=== PATIENT | male | born 1970 | race Caucasian/White ===

== ENCOUNTER 2018-02-04 17:59 | Emergency (ER) | payer BC ==
[~2018-02-04] VITALS: Ht 172.7 cm; Wt 81.0 kg
[~2018-02-04 17:59] MED LIST: CIPR-230 PO; METR500T4 PO
[2018-02-04 18:03] VITALS: BP 153/93
[2018-02-04 20:02] LABS: BASOPHILS % (AUTO) 0.5 % (0-1); EOSINOPHILS # (AUTO) 0.2 X10'3 (0-0.9); EOSINOPHILS % (AUTO) 1.8 % (0-6); HEMOGLOBIN 15.6 g/dl (14.0-17.9); LYMPHOCYTES # (AUTO) 2.8 X10'3 (1.1-4.8); LYMPHOCYTES % (AUTO) 28.6 % (21-51); MEAN CORPUSCULAR HEMOGLOBIN 30.3 PG (27.0-31.0); MEAN CORPUSCULAR HGB CONC 33.8 % (33.0-36.5); MEAN CORPUSCULAR VOLUME 89.6 FL (78-98); MEAN PLATELET VOLUME 8.2 FL (7.4-10.4); MONOCYTES # (AUTO) 0.7 X10'3 (0-0.9); MONOCYTES % (AUTO) 7.5 % (2-12); NEUTROPHILS % (AUTO) 61.6 % (42-75); PLATELET COUNT 362 X10'3 (140-440); RED BLOOD COUNT 5.14 X10'6 (4.70-6.10); RED CELL DISTRIBUTION WIDTH 12.3 % (11.5-14.5); WHITE BLOOD COUNT 9.7 X10'3 (4.5-11.0)
[2018-02-04 20:16] LABS: ALANINE AMINOTRANSFERASE 32 U/L (12-78); ALBUMIN/GLOBULIN RATIO 1.1 (1.1-1.5); ALKALINE PHOSPHATASE 65 IU/L (46-116); ANION GAP 7 (8-16); ASPARTATE AMINO TRANSFERASE 22 U/L (10-37); BILIRUBIN,TOTAL 0.4 MG/DL (0.1-1.0); BLOOD UREA NITROGEN 14 MG/DL (7-18); BUN/CREATININE RATIO 12.8 (5.4-32.0); CALCIUM 9.1 MG/DL (8.5-10.1); CHLORIDE 100 MMOL/L (99-107); CREATININE 1.09 MG/DL (0.60-1.10); GLUCOSE 106 MG/DL (70-104); POTASSIUM 3.9 MMOL/L (3.5-5.1); SODIUM 140 MMOL/L (135-145); TOTAL CARBON DIOXIDE 33.2 MMOL/L (24-32); TOTAL PROTEIN 7.8 G/DL (6.4-8.2); eGFR 72 ML/MIN
== END 2018-02-04 20:48 | disposition home or self-care (01) ==
LOC: ER 17:59
DX: R79.9 Abnormal finding of blood chemistry, unspecified (principal); F12.90 Cannabis use, unspecified, uncomplicated
CPT/HCPCS: 36415; 80053; 85025; 99284

== ENCOUNTER 2018-07-27 06:51 | Emergency (ER) | payer BC ==
[~2018-07-27] VITALS: Ht 172.7 cm; Wt 84.0 kg
[2018-07-27 07:14] VITALS: BP 125/72
[2018-07-27 07:39] LABS: CLARITY,URINE CLEAR (Clear); COLOR,URINE YELLOW (Yellow); GLUCOSE, URINE NEGATIVE (Neg); KETONES,URINE NEGATIVE (Neg); LEUKOCYTE ESTERASE ,URINE NEGATIVE (Neg); NITRITES, URINE NEGATIVE (Neg); OCCULT BLOOD,URINE NEGATIVE (Neg); PH,URINE 8.5 (4.8-8.0); PROTEIN,URINE NEGATIVE (Neg); UROBILINOGEN,URINE 0.2 E.U/dL (0.2-1.0)
[2018-07-27 07:48] LABS: UA COLLECTION TYPE CLN CATCH MIDSTREAM
[2018-07-27] MEDS ORDERED: pantoprazole 40 MG vial IV ONE (07:50)
[2018-07-27] MEDS ORDERED: normal saline 1000ML IV soln IVB ONE (07:50)
[2018-07-27] MEDS ORDERED: proCHLORperazine 10 MG/2 ml inj IV ONE (07:50)
[2018-07-27 08:31] LABS: BASOPHILS # (AUTO) 0.1 X10'3 (0-0.2); BASOPHILS % (AUTO) 0.6 % (0-1); EOSINOPHILS # (AUTO) 0.1 X10'3 (0-0.9); EOSINOPHILS % (AUTO) 0.9 % (0-6); HEMATOCRIT 45.4 % (42.0-52.0); HEMOGLOBIN 15.7 g/dl (14.0-17.9); LYMPHOCYTES # (AUTO) 1.5 X10'3 (1.1-4.8); LYMPHOCYTES % (AUTO) 14.9 % (21-51); MEAN CORPUSCULAR HGB CONC 34.5 g/dL (33.0-36.5); MEAN CORPUSCULAR VOLUME 89.9 FL (78-98); MEAN PLATELET VOLUME 8.2 FL (7.4-10.4); MONOCYTES # (AUTO) 0.7 X10'3 (0-0.9); MONOCYTES % (AUTO) 6.6 % (2-12); NEUTROPHILS # (AUTO) 7.7 X10'3 (1.8-7.7); PLATELET COUNT 329 X10'3 (140-440); RED BLOOD COUNT 5.05 X10'6 (4.70-6.10); RED CELL DISTRIBUTION WIDTH 12.7 % (11.5-14.5); WHITE BLOOD COUNT 10.1 X10'3 (4.5-11.0)
[2018-07-27 08:47] LABS: ALANINE AMINOTRANSFERASE 31 U/L (12-78); ALBUMIN 3.8 G/DL (3.4-5.0); ALBUMIN/GLOBULIN RATIO 1.2 (1.1-1.5); ALKALINE PHOSPHATASE 62 IU/L (46-116); ANION GAP 10 (8-16); ASPARTATE AMINO TRANSFERASE 25 U/L (10-37); BILIRUBIN,TOTAL 0.3 MG/DL (0.1-1.0); BLOOD UREA NITROGEN 12 MG/DL (7-18); BUN/CREATININE RATIO 12.5 (5.4-32.0); CALCIUM 8.9 MG/DL (8.5-10.1); CHLORIDE 106 MMOL/L (99-107); CREATININE 0.96 MG/DL (0.60-1.10); GLUCOSE 110 MG/DL (70-104); LIPASE 124 U/L (73-393); SODIUM 140 MMOL/L (135-145); TOTAL PROTEIN 7.1 G/DL (6.4-8.2); eGFR 83 ML/MIN
[2018-07-27] MEDS ORDERED: PANT-47 PO (08:58)
[2018-07-27] MEDS ORDERED: ONDA8TAB13 PO (08:58)
== END 2018-07-27 09:31 | disposition home or self-care (01) ==
LOC: ER 06:52
DX: R10.9 Unspecified abdominal pain (principal); R11.2 Nausea with vomiting, unspecified; F12.90 Cannabis use, unspecified, uncomplicated
CPT/HCPCS: 36415; 80053; 81003; 83690; 85025; 96374; 96375; 99283; C9113; J0780; J7030

== ENCOUNTER 2018-11-21 10:25 | Emergency (ER) | payer BC ==
[~2018-11-21] VITALS: Ht 172.7 cm; Wt 86.4 kg
[~2018-11-21 10:25] MED LIST changes: -CIPR-230 PO; -METR500T4 PO; +ONDA8TAB13 PO; +PANT-47 PO
[2018-11-21 11:19] LABS: BASOPHILS # (AUTO) 0.1 X10'3 (0-0.2); BASOPHILS % (AUTO) 0.6 % (0-1); EOSINOPHILS % (AUTO) 0.3 % (0-6); HEMATOCRIT 47.2 % (42.0-52.0); HEMOGLOBIN 16.4 g/dl (14.0-17.9); LYMPHOCYTES # (AUTO) 1.6 X10'3 (1.1-4.8); LYMPHOCYTES % (AUTO) 13.3 % (21-51); MEAN CORPUSCULAR HEMOGLOBIN 31.3 PG (27.0-31.0); MEAN CORPUSCULAR HGB CONC 34.7 g/dL (33.0-36.5); MEAN CORPUSCULAR VOLUME 90.2 FL (78-98); MEAN PLATELET VOLUME 7.8 FL (7.4-10.4); MONOCYTES # (AUTO) 0.6 X10'3 (0-0.9); MONOCYTES % (AUTO) 4.9 % (2-12); NEUTROPHILS # (AUTO) 9.5 X10'3 (1.8-7.7); NEUTROPHILS % (AUTO) 80.9 % (42-75); PLATELET COUNT 362 X10'3 (140-440); RED BLOOD COUNT 5.23 X10'6 (4.70-6.10); RED CELL DISTRIBUTION WIDTH 12.9 % (11.5-14.5); WHITE BLOOD COUNT 11.8 X10'3 (4.5-11.0)
[2018-11-21 11:35] LABS: ALANINE AMINOTRANSFERASE 26 U/L (12-78); ALBUMIN 4.1 G/DL (3.4-5.0); ALBUMIN/GLOBULIN RATIO 1.1 (1.1-1.5); ALKALINE PHOSPHATASE 69 IU/L (46-116); AMYLASE 31 U/L (25-115); ANION GAP 11 (8-16); ASPARTATE AMINO TRANSFERASE 21 U/L (10-37); BILIRUBIN,TOTAL 0.8 MG/DL (0.1-1.0); BLOOD UREA NITROGEN 11 MG/DL (7-18); BUN/CREATININE RATIO 10.5 (5.4-32.0); CHLORIDE 109 MMOL/L (99-107); CREATININE 1.05 MG/DL (0.60-1.10); GLUCOSE 163 MG/DL (70-104); LIPASE 92 U/L (73-393); POTASSIUM 3.9 MMOL/L (3.5-5.1); SODIUM 143 MMOL/L (135-145); TOTAL PROTEIN 7.8 G/DL (6.4-8.2); eGFR 75 ML/MIN
--- NOTE | 2018-11-21 12:00 | NUR ---
LARGE LOOSE STOOL YELLOW IN COLOR [id number]
[2018-11-21] MEDS ORDERED: haloperidol lactate 5mg/ml inj IM ONE (12:20)
[2018-11-21] MEDS ORDERED: LORazepam 2 mg/ml vial IV ONE (12:20)
[2018-11-21] MEDS ORDERED: ringers solution, lacted 1,000 ML IV ONE (12:20)
[2018-11-21] MEDS ORDERED: magnesium 2GM in 50ml NS 50 ML IV ONE (12:20)
[2018-11-21] MEDS ORDERED: HALO5TAB PO (13:30)
[2018-11-21 13:41] VITALS: BP 104/62
== END 2018-11-21 13:44 | disposition home or self-care (01) ==
LOC: ER 10:25
DX: F12.188 Cannabis abuse with other cannabis-induced disorder (principal); R11.10 Vomiting, unspecified; R10.84 Generalized abdominal pain; Z79.899 Other long term (current) drug therapy
CPT/HCPCS: 36415; 80053; 82150; 83690; 85025; 85610; 96365; 96372; 96375; 99283; J1630; J2060; J3475; J7120

== ENCOUNTER 2022-08-31 07:50 | Emergency (ER) | payer BC ==
[~2022-08-31] VITALS: Ht 172.7 cm; Wt 81.8 kg
[~2022-08-31 07:50] MED LIST changes: +HALO5TAB PO
[2022-08-31] MEDS ORDERED: ketorolac trometh inj. 60 MG/2 ML VIAL IM ONE (08:55)
[2022-08-31] MEDS ORDERED: ondansetron/PF 4mg/2ml inj IV ONE (09:05)
[2022-08-31] MEDS ORDERED: morphine 4 MG/ML inj SYRINge IV ONE (09:05)
[2022-08-31] MEDS ORDERED: IBUP-1986 PO (09:21)
[2022-08-31] MEDS ORDERED: OXYC-145 PO (09:21)
[2022-08-31 09:52] VITALS: BP 134/80
== END 2022-08-31 09:58 | disposition home or self-care (01) ==
LOC: ER 07:50
DX: S82.142A Displaced bicondylar fracture of left tibia, initial encounter for closed fracture (principal); F12.90 Cannabis use, unspecified, uncomplicated; V89.2XXA Person injured in unspecified motor-vehicle accident, traffic, initial encounter; Y93.89 Activity, other specified; Y92.89 Other specified places as the place of occurrence of the external cause; Y99.8 Other external cause status
CPT/HCPCS: 29505; 73560; 96372; 96374; 96375; 99284; J1885; J2270; J2405; A6449

== ENCOUNTER 2024-06-27 19:13 | Emergency (ER) | payer BC ==
[~2024-06-27 19:13] MED LIST changes: +IBUP-1986 PO; +ONDA-245 PO; -ONDA8TAB13 PO; +OXYC-145 PO
[2024-06-27 19:18] VITALS: TEMP 98.1
[2024-06-27 19:36] LABS: BASOPHILS # (AUTO) 0.1 X10'3 (0-0.2); BASOPHILS % (AUTO) 0.4 % (0-1); EOSINOPHILS % (AUTO) 0 % (0-6); HEMATOCRIT 53.4 % (42.0-52.0); LYMPHOCYTES # (AUTO) 1.6 X10'3 (1.1-4.8); MEAN CORPUSCULAR HEMOGLOBIN 30.2 PG (27.0-31.0); MEAN CORPUSCULAR HGB CONC 34.2 g/dL (33.0-36.5); MEAN CORPUSCULAR VOLUME 88.5 FL (78-98); MEAN PLATELET VOLUME 7.5 FL (7.4-10.4); MONOCYTES # (AUTO) 1.3 X10'3 (0-0.9); MONOCYTES % (AUTO) 8.1 % (2-12); NEUTROPHILS # (AUTO) 12.8 X10'3 (1.8-7.7); NEUTROPHILS % (AUTO) 81.5 % (42-75); PLATELET COUNT 412 X10'3 (140-440); RED BLOOD COUNT 6.04 X10'6 (4.70-6.10); RED CELL DISTRIBUTION WIDTH 12.4 % (11.5-14.5); WHITE BLOOD COUNT 15.7 X10'3 (4.5-11.0)
[2024-06-27 19:38] LABS: HEMOGLOBIN 18.3 g/dl (14.0-17.9)
[2024-06-27 19:51] LABS: ALANINE AMINOTRANSFERASE 40 U/L (12-78); ALBUMIN 4.7 G/DL (3.4-5.0); ALKALINE PHOSPHATASE 86 IU/L (46-116); ANION GAP 15 (8-16); ASPARTATE AMINO TRANSFERASE 38 U/L (10-37); BILIRUBIN,TOTAL 1.2 MG/DL (0.1-1.0); BLOOD UREA NITROGEN 24 MG/DL (7-18); BUN/CREATININE RATIO 14.5 (10.0-20.0); CALCIUM 9.9 MG/DL (8.5-10.1); CHLORIDE 93 MMOL/L (99-107); CREATININE 1.66 MG/DL (0.60-1.10); GLUCOSE 137 MG/DL (70-104); LIPASE 47 U/L (16-77); POTASSIUM 3.6 MMOL/L (3.5-5.1); SODIUM 133 MMOL/L (135-145); TOTAL CARBON DIOXIDE 25.1 MMOL/L (24-32); TOTAL PROTEIN 9.3 G/DL (6.4-8.2); eGFR 43 ML/MIN
[2024-06-27] MEDS: normal saline 1000ml 1,000 ML IV ONE ×2 (20:34→20:56)
[2024-06-27] MEDS: ketorolac trometh 15mg/ml vial 15 MG/ML ML IV ONE (20:38)
[2024-06-27] MEDS: metoclopramide 5 mg/ml inj IV ONE (20:39)
[2024-06-27] MEDS: diphenhydrAMINE 50 mg/ml inj IV ONE (20:39)
[2024-06-27] MEDS: acetaminophen 1,000mg/100ml IV 100 ML IV ONE (20:39)
[2024-06-27] MEDS ORDERED: iohexol 300mg/ml 100ml inj. ONE (20:42)
[2024-06-27] MEDS: ondansetron/PF 4mg/2ml inj IV ONE (20:50)
[2024-06-27] MEDS: haloperidol lactate 5mg/ml inj IVH ONE (20:51)
[2024-06-27 23:14] LABS: BILIRUBIN,URINE NEGATIVE (Neg); CLARITY,URINE CLEAR (Clear); COLOR,URINE YELLOW (Yellow); GLUCOSE, URINE NEGATIVE (Neg); KETONES,URINE 15 mg/dl (Neg); LEUKOCYTE ESTERASE ,URINE NEGATIVE (Neg); NITRITES, URINE NEGATIVE (Neg); OCCULT BLOOD,URINE SMALL (Neg); PH,URINE 5.5 (4.8-8.0); PROTEIN,URINE 30 mg/dl (Neg); UROBILINOGEN,URINE 0.2 E.U/dL (0.2-1.0)
[2024-06-27 23:19] LABS: UA COLLECTION TYPE CLN CATCH MIDSTREAM
[2024-06-27] MEDS ORDERED: HYDR-3965 PO (23:19)
[2024-06-27] MEDS ORDERED: AMOX-419 PO (23:19)
[2024-06-27] MEDS ORDERED: ONDA-245 PO (23:19)
[2024-06-27 23:20] LABS: BACTERIA,URINE 1+ /HPF (Neg); MUCUS STRANDS FEW /LPF (Neg); RBC,URINE NONE SEEN /HPF (0-2); SQUAMOUS EPITHELIAL CELL,UR FEW /LPF (FEW); WBC,URINE 0-4 /HPF (0-4)
[2024-06-27] MEDS: amox tr/potassium clavulanate 500mg/125mg TAB PO ONE (23:21)
[2024-06-27] MEDS: proCHLORperazine 10 MG/2 ml inj IV ONE (23:22)
[2024-06-27 23:40] VITALS: BP 118/76; PULSE 87; RESP 15; O2SAT 98
[2024-06-27 23:44] LABS: URINE AMPHETAMINE SCREEN NEGATIVE (Neg); URINE BARBITUATE SCREEN NEGATIVE (Neg); URINE BENZODIAZEPINES SCREEN NEGATIVE (Neg); URINE CANNABINOID SCREEN POSITIVE (Neg); URINE COCAINE SCREEN NEGATIVE (Neg); URINE METHADONE SCREEN NEGATIVE (Neg); URINE OPIATE SCREEN NEGATIVE (Neg); URINE PHENCYCLIDINE SCREEN NEGATIVE (Neg)
== END 2024-06-27 23:44 | disposition home or self-care (01) ==
LOC: ER 19:14
DX: K52.9 Noninfective gastroenteritis and colitis, unspecified (principal); E86.0 Dehydration; F12.90 Cannabis use, unspecified, uncomplicated
CPT/HCPCS: 36415; 74177; 80053; 80305; 81001; 83690; 84145; 85025; 96365; 96366; 96372; 96375; 99285; J0131; J0780; J1200; J1630; J1885; J2405; J2765; J7030; Q9967